=== PATIENT | male | born 1945 | race Caucasian/White ===

== ENCOUNTER 2017-09-16 09:50 | Day surgery (SDC) | payer MEDICARE, OTHER ==
[~2017-09-16] VITALS: Ht 177.8 cm; Wt 90.7 kg
[~2017-09-16 09:50] MED LIST: PRED FORTE1 ML OPTH
== END 2017-09-16 14:05 | disposition home or self-care (01) ==
LOC: OPS 09:50 → DS 09:50 → OPS 11:00
PROVIDERS: Ophthalmology
PROC: 08Q9XZZ Repair Left Cornea, External Approach (ICD-10-PCS; principal; 2017-09-16 11:00)
DX: H18.12 Bullous keratopathy, left eye (principal); R12 Heartburn; I95.9 Hypotension, unspecified; Z85.3 Personal history of malignant neoplasm of breast; Z92.3 Personal history of irradiation; Z98.890 Other specified postprocedural states; Z87.442 Personal history of urinary calculi; Z88.5 Allergy status to narcotic agent; Z79.52 Long term (current) use of systemic steroids
CPT/HCPCS: 00144; J2250; V2785